=== PATIENT | male | born 1940 | race Caucasian/White ===

== ENCOUNTER → 2016-04-17 | Outpatient (CLI) | payer OTHER ==
--- NOTE | 2016-04-17 12:03 | DX ---
Thoracic Spine - 3 Views dated April 17, 2016 Indication: Follow up T3 and T4 compression fractures. Comparison: Thoracic spine series dated February 13, 2016. Findings: The mild to moderate T3 and T4 compression fractures are unchanged since February 2016. No new compression fracture. Imaged portion of the lungs are clear. Impression: T3 and T4 compression fractures unchanged since February 2016.
--- NOTE | 2016-04-17 14:41 | DX ---
Lumbar Spine, Two Views April 17, 2016 Indication: Follow up L1 fracture. Technique: Upright AP and lateral views. Comparison: Lumbar spine series dated February 13, 2016. Findings: Progressive height loss of L1 since three months prior. The anterior aspect of the vertebr al body now measures 15 mm craniocaudal (previously 25 mm). No new compression fracture. Moderate-sev ere multilevel degenerative disk and facet arthropathy and mild deformity of the upper sacrum are unc hanged. Impression: 1. Progressive height loss of moderate L1 compression fracture since three months prior. 2. No new compression fracture.
== END ==
LOC: FIMAGING 08:32
PROVIDERS: ATTEND Physician Assistant
DX: S32.010G Wedge compression fracture of first lumbar vertebra, subsequent encounter for fracture with delayed healing (principal); S22.03 Fracture of third thoracic vertebra; S22.04 Fracture of fourth thoracic vertebra

== ENCOUNTER → 2016-06-15 | Outpatient (CLI) | payer OTHER | LOC: FIMAGING 09:06 | PROVIDERS: ATTEND Physician Assistant | DX: S32.010D Wedge compression fracture of first lumbar vertebra, subsequent encounter for fracture with routine healing (principal); M51.36 Other intervertebral disc degeneration, lumbar region; M51.37 Other intervertebral disc degeneration, lumbosacral region; K59.00 Constipation, unspecified ==

== ENCOUNTER → 2016-08-21 | Outpatient (CLI) | payer OTHER | LOC: BHFA 08:30 | PROVIDERS: ATTEND Internal Medicine Cardiovascular Disease | DX: I48.92 Unspecified atrial flutter (principal) | CPT/HCPCS: 78452; 93017; A9500; J2785 ==

== ENCOUNTER → 2016-08-26 | Outpatient (CLI) | payer OTHER | LOC: BHFA 16:00 | PROVIDERS: ATTEND Internal Medicine Cardiovascular Disease | DX: I48.92 Unspecified atrial flutter (principal) ==

== ENCOUNTER 2016-09-18 08:11 | Day surgery (SDC) | payer OTHER ==
[2016-09-18] MEDS ORDERED: PROPOFOL 200 MG/20 ML VIAL IVP ONE (08:18)
[2016-09-18] MEDS ORDERED: MIDAZOLAM 2 MG/2 ML VIAL IVP ONE (08:18)
[2016-09-18] MEDS ORDERED: NS 500 ML IV ONE (08:18)
[2016-09-18] MEDS ORDERED: fentaNYL 100 MCG/2 ML INJ IVP ONE (08:18)
[2016-09-18] MEDS ORDERED: BENZOCAINE UNIT DOSE SPRAY HURRICAINE MM ONE (08:18)
--- NOTE | 2016-09-18 08:35 | CPEKG ---
Heart Rate: 70 RR Interval: 857 QRSD Interval: 118 QT Interval: 428 QTC Interval: 462 QRS [place]: -78 T Wave [place]: 36 EKG Severity - ABNORMAL ECG - EKG Impression: A-FLUTTER W/ PREDOM 4:1 AV BLOCK, A-RATE 272 EKG Impression: VENTRICULAR PREMATURE COMPLEX EKG Impression: INCOMPLETE RBBB AND LAFB EKG Impression: LOW VOLTAGE IN FRONTAL LEADS Electronically Signed By: Marcelino Mazariegos 18-Sep-2016 16:47:44
[2016-09-18] MEDS ORDERED: ATROPINE SULFATE 1 MG/10 ML SYR ONE (08:37)
[2016-09-18 09:03] LABS: INR 1.14 (0.83-1.16); PROTIME(PATIENT) 14.5 SEC (12.0-15.0)
[2016-09-18 09:04] LABS: APTT 31.2 SEC (23.0-38.0)
[2016-09-18 09:07] LABS: ANION GAP 8 mEq/L (8-16); CALCIUM 9.3 mg/dL (8.5-10.4); CARBON DIOXIDE 25 mEq/l (22-31); CHLORIDE 105 mEq/L (97-110); CREATININE 0.9 mg/dL (0.7-1.3); GLOMERULAR FILTRATION RATE > 60; GLUCOSE 94 mg/dL (70-100); POTASSIUM 4.1 mEq/L (3.5-5.2); SODIUM 138 mEq/L (134-144)
[2016-09-18] MEDS ORDERED: ETOMIDATE 40 MG/20 ML INJ ONE (10:26)
[2016-09-18] MEDS ORDERED: MIDAZOLAM 2 MG/2 ML VIAL ONE (10:26)
[2016-09-18] MEDS ORDERED: fentaNYL 100 MCG/2 ML INJ ONE (10:27)
--- NOTE | 2016-09-18 11:21 | CPEKG ---
Heart Rate: 61 RR Interval: 984 P-R Interval: 192 QRSD Interval: 108 QT Interval: 428 QTC Interval: 431 P [place]: 71 QRS [place]: 46 T Wave [place]: 17 EKG Severity - ABNORMAL ECG - EKG Impression: SINUS RHYTHM EKG Impression: INCOMPLETE RIGHT BUNDLE BRANCH BLOCK EKG Impression: LOW VOLTAGE IN FRONTAL LEADS Electronically Signed By: Marcelino Mazariegos 18-Sep-2016 16:47:36
--- NOTE | 2016-09-18 17:32 | CPIP ---
[f rep st] INVASIVE CARDIAC PROCEDURE DATE OF PROCEDURE: 09/18/2016 PROCEDURE PERFORMED: FAUSTO-guided cardioversion. INDICATIONS/APPROPRIATE USE CRITERIA: The patient has paroxysmal and persistent atrial flutter whic h is symptomatic and restricting his exercise tolerance. This appears to be new in onset. COMPLICATIONS: None. PROCEDURE IN DETAIL: After informed consent was obtained and n.p.o. status was confirmed, the patie nt underwent a transesophageal echo, which did not reveal evidence of clot within the left atrial ap pendage. There was also no evidence of spontaneous echo contrast within the left atrium to suggest a contraindication to cardioversion. The patient then received intravenous deep sedation with etomi date given at a dose of 0.08 mg/kg. After adequate sedation had been achieved, the patient underwen t elective direct current cardioversion with synchronized countershock of 150 joules which was bipha sic, with patches in anterior and posterior position, with subsequent return of the rhythm to normal sinus at a rate of 56-64. His pulse was checked, as well as his blood pressure, and he tolerated t he procedure well. FINAL IMPRESSION: Successful elective direct current cardioversion of atrial flutter which was ham sesophageal echocardiogram-guided. PLAN: The patient will be discharged on Eliquis 5 mg p.o. twice daily, which he started 2 days ago. /[id number]/MODL
--- NOTE | 2016-09-18 18:20 | ECHO ---
[id number] + + [address] : : [place] [address] : : [phone] + + Transesophageal Echocardiographic Report + + :Name: NAM BARCENAS Study Date: 09/18/2016 10:06 AM : : Hospital Admission Number: [id number] : :: 1940 Gender: Male : :Age: 76 yrs Race: WH : :Reason For Study: pre-cardioversion : :History: aflutter : + + LV The left ventricle is normal in size and function. RV The right ventricle is normal size. The right ventricular systolic function is mildly reduced. Atria The left atrium is mild to moderately dilated. No thrombus is detected in the left atrial appendage. No left atrial mass or thrombus visualized. Severe right atrial enlargement. Injection of contrast documented an interatrial shunt. The atrial septum is aneurysmal. Mitral Valve Mild bowing of the mitral leaflets however does not meet formal criteria for prolapse. There is mild mitral regurgitation. Aortic Valve The aortic valve is trileaflet. There is no aortic insufficiency. Tricuspid Valve The tricuspid valve is normal in structure and function. There is mild tricuspid regurgitation. Conclusion The left ventricle is normal in size and function. The right ventricular systolic function is mildly reduced. The left atrium is mild to moderately dilated. No thrombus is detected in the left atrial appendage. No left atrial mass or thrombus visualized. Severe right atrial enlargement. Injection of contrast documented an interatrial shunt. Mild bowing of the mitral leaflets however does not meet formal criteria for prolapse. There is mild mitral regurgitation. There is mild tricuspid regurgitation. The patient proceeded with sucessful elective DC cardioversion. Final Reading Physician: Holly Mixon signed on 09/18/2016 06:19 PM Ordering Physician: Shun Hanna Performed By: Epifanio Weiss MD
== END 2016-09-18 12:50 | disposition home or self-care (01) ==
LOC: FCATH 08:11
PROVIDERS: ATTEND Internal Medicine
PROC: 5A2204Z Restoration of Cardiac Rhythm, Single (ICD-10-PCS; principal; 2016-09-18)
PROC: B245ZZ4 Ultrasonography of Left Heart, Transesophageal (ICD-10-PCS; principal; 2016-09-18)
DX: I48.91 Unspecified atrial fibrillation (principal); I25.10 Atherosclerotic heart disease of native coronary artery without angina pectoris; E03.9 Hypothyroidism, unspecified
CPT/HCPCS: J0461; J2250; J3010

== ENCOUNTER → 2017-08-31 | Outpatient (CLI) | payer OTHER | LOC: FIMAGING 13:04 | PROVIDERS: ATTEND Nurse Practitioner | DX: M50.11 Cervical disc disorder with radiculopathy, high cervical region (principal); M41.82 Other forms of scoliosis, cervical region ==

== ENCOUNTER → 2017-09-06 | Outpatient (CLI) | payer OTHER | LOC: FIMAGING 16:10 | PROVIDERS: ATTEND Nurse Practitioner | DX: M84.88 Other disorders of continuity of bone, other site (principal); M53.83 Other specified dorsopathies, cervicothoracic region; M48.03 Spinal stenosis, cervicothoracic region ==

== ENCOUNTER → 2018-04-16 | Outpatient (CLI) | payer OTHER | LOC: FIMAGING 09:39 | PROVIDERS: ATTEND Orthopaedic Surgery | DX: Z01.818 Encounter for other preprocedural examination (principal); M17.12 Unilateral primary osteoarthritis, left knee ==

== ENCOUNTER 2018-05-17 05:14 | Inpatient (IN) | payer OTHER ==
[2018-05-17] MEDS ORDERED: LIDOCAINE 1% 2 ML INJ ONE (05:43)
[2018-05-17] MEDS ORDERED: GABAPENTIN 300 MG CAP PO ONE (05:59)
[2018-05-17] MEDS ORDERED: ACETAMINOPHEN 325 MG TAB PO ONE (05:59)
[2018-05-17] MEDS ORDERED: ONDANSETRON 4 MG/2 ML VIAL IVP ONE (05:59)
[2018-05-17] MEDS ORDERED: DEXAMETHASONE 4 MG/ML VIAL IVP ONE (05:59)
[2018-05-17] MEDS ORDERED: ceFAZolin 2 GM/DEXTROSE 100 ML IV ONE (05:59)
[2018-05-17] MEDS ORDERED: FAMOTIDINE 20 MG TAB PO ONE (05:59)
[2018-05-17] MEDS ORDERED: TRANEXAMIC ACID 3,000 MG in NS (SYRINGE) 50 ML IRR ONE (06:00)
[2018-05-17] MEDS ORDERED: ROPIVACAINE 0.2% 80 MG, EPINEPHrine 0.2 MG, KETOROLAC TROMETHAMINE 30 MG in SYRINGE 0 ML IU ONE (06:00)
[2018-05-17] MEDS ORDERED: TRANEXAMIC ACID 1,000 MG in NS 100 ML IV ONE (06:00)
[2018-05-17] MEDS ORDERED: POVIDONE-IODINE 20 ML in SODIUM CL IRRIG SOLUTION 500 ML IRR ONE (06:00)
[2018-05-17] MEDS ORDERED: LR 1,000 ML IV ONE (06:18)
[2018-05-17] MEDS ORDERED: LIDOCAINE 1% 2 ML INJ ID PRN (06:18)
[2018-05-17] MEDS ORDERED: TRANEXAMIC ACID 3,000 MG/50 ML BAG IRR ONE (06:30)
[2018-05-17] MEDS ORDERED: ceFAZolin 1 GM/5 ML SYR ONE (06:31)
[2018-05-17] MEDS ORDERED: PROMETHAZINE HCL 25 MG/ML INJ IVP PRN (07:00)
[2018-05-17] MEDS ORDERED: ONDANSETRON DISINTEGRATING 4 MG TAB PO PRN (07:00)
[2018-05-17] MEDS ORDERED: METOCLOPRAMIDE 10 MG/2 ML VIAL IVP PRN (07:00)
[2018-05-17] MEDS ORDERED: BISACODYL 10 MG SUPP PR PRN (07:00)
[2018-05-17] MEDS ORDERED: diphenhydrAMINE 25 MG CAP PO PRN (07:00)
[2018-05-17] MEDS ORDERED: LACTULOSE 20 GM/30 ML UDCUP PO PRN (07:00)
[2018-05-17] MEDS ORDERED: MAGNESIUM HYDROXIDE 30 ML UDCUP PO PRN (07:00)
[2018-05-17] MEDS ORDERED: NS 500 ML IV PRN (07:00)
[2018-05-17] MEDS ORDERED: TEMAZEPAM 15 MG CAP PO PRN (07:00)
[2018-05-17] MEDS ORDERED: POLYETHYLENE GLYCOL 3350 17 GM PKT PO PRN (07:00)
[2018-05-17] MEDS ORDERED: traMADol 50 MG TAB PO PRN (07:00)
[2018-05-17] MEDS ORDERED: PROMETHAZINE HCL 25 MG SUPPR PR PRN (07:00)
[2018-05-17] MEDS ORDERED: CYCLOBENZAPRINE 10 MG TAB PO PRN (07:00)
[2018-05-17] MEDS ORDERED: LR 1,000 ML IV SCH (07:00)
[2018-05-17] MEDS ORDERED: DIPHENOXYLATE/ATROPINE LOMOTIL 1 TAB PO PRN (07:00)
[2018-05-17] MEDS ORDERED: ONDANSETRON 4 MG/2 ML VIAL IVP PRN ×2 (07:00→10:39)
[2018-05-17] MEDS ORDERED: oxyCODONE IR 5 MG TAB PO PRN ×2 (07:00→10:39)
--- NOTE | 2018-05-17 07:00 | PDHPUP ---
History & Physical Update H&P update statement: This history and physical update is based on an assessment of the patient which was completed after admission or registration (within 24 hours), but prior to the surgery/procedure. H&P update: H&P reviewed & patient examined
[2018-05-17] MEDS ORDERED: BUPIVACAINE/DEXTROSE 7.5MG/ML 2 ML SPINAL AMP SP ONE (07:08)
[2018-05-17] MEDS ORDERED: PROPOFOL 200 MG/20 ML VIAL ONE (07:27)
[2018-05-17] MEDS ORDERED: ONDANSETRON 4 MG/2 ML VIAL ONE (07:38)
[2018-05-17] MEDS ORDERED: ROCURONIUM 50 MG/5 ML VIAL ONE (07:38)
[2018-05-17] MEDS ORDERED: DEXAMETHASONE 4 MG/ML VIAL ONE (07:38)
[2018-05-17] MEDS ORDERED: RANITIDINE 50 MG/2 ML VIAL ONE (07:39)
[2018-05-17] MEDS ORDERED: HYDROmorphONE/DILAUDID 2 MG/ML INJ ONE (07:40)
[2018-05-17] MEDS ORDERED: METOPROLOL TARTRATE 5 MG/5 ML INJ ONE ×2 (07:48→09:04)
--- NOTE | 2018-05-17 08:07 | PDMN ---
Medical Necessity Medical necessity: [facility] [place] OP: L TKA- auth# [id number] APPROVED FOR 3 DAYS
[2018-05-17] MEDS ORDERED: ROPIVACAINE HCL 150 MG/30 ML INJ ONE (08:45)
[2018-05-17] MEDS ORDERED: PHENYLEPHRINE HCL 100 MCG/ML SYR ONE (09:34)
--- NOTE | 2018-05-17 10:05 | POSTOPPROG ---
Post Op Note Date of Operation: 05/17/18 Surgeon: Eusebio Shea Advertising Associate: Amy Anesthesiologist: Dr. Claus Davis Anesthesia: GET(General Endotracheal) Post-op Diagnosis: Left knee degenerative arthritis. Procedure: Left total knee arthroplasty, Braden assisted. Inf/Abcess present in the surg proc area at time of surgery?: No EBL: 50-100 (Adductor canal block in PACU with indwelling catheter.)
[2018-05-17] MEDS ORDERED: fentaNYL 100 MCG/2 ML INJ ONE (10:19)
--- NOTE | 2018-05-17 10:25 | GOP ---
[f rep st] OPERATIVE REPORT DATE OF OPERATION: 05/17/2018 SURGEON: Eusebio Shea MD JOINTER OPERATOR: Agustin Reyes CFA ANESTHESIA: General anesthesia. ANESTHESIOLOGIST: Dr. Claus Davis PREOPERATIVE DIAGNOSIS: Left knee severe degenerative arthritis. POSTOPERATIVE DIAGNOSIS: Left knee severe degenerative arthritis. PROCEDURE PERFORMED: Left total knee arthroplasty, Braden assisted, press fit. FINDINGS: DESCRIPTION OF PROCEDURE: The patient was given 2 g of IV Ancef preoperatively within 60 minutes of surgery. He also received 2000 mg of IV tranexamic acid. He was on the operating room table and Dr. Davis attempted spinal anesthesia. That was unsuccessful. Dr. Davis then administered general anesthesia. A Mcnally catheter was not used. He wore a NADYA stocking and SCD on the nonoperative leg. His left lower extremity was prepped with ChloraPrep from the upper thigh tourniquet to the tips of the toes. It was draped free using sterile sheets, stockinette, and Ioban plastic adhesive drape. The lower leg was wrapped with compressive Coban. The World Health Organization time-out was performed to verify the correct patient identity and the correct surgical side and site. The [place] time-out was also performed. The Safe Bulkersayo leg holding device was sterilely attached to the operating room table and used throughout the procedure to help position the knee. Two 3 mm partially threaded pins were inserted in a bicortical fashion in the anteromedial cortex of the tibia about 4 inches distal to the tibial tubercle. At this point, the leg was exsanguinated with a 6-inch compressive wrap, and the tourniquet was inflated to 250 mmHg. A straight midline incision made centered on the patella. Subcutaneous tissues were sharply divided, and hemostasis was obtained using electrocautery. A medial subcutaneous flap was developed, and the capsule and synovium were opened in a medial parapatellar fashion. His medial capsule and periosteum were lightly elevated off the rim of the medial tibial plateau. Two 3 mm partially threaded pins were inserted in the anteromedial cortex of the distal femur in the supracondylar region through the incision. The femoral checkpoint was inserted anterior and just between the 2 pins. The tibial check point was inserted in the anteromedial cortex of the tibia about an inch distal to the joint line. The computer arrays were attached and I confirmed that both the femur and tibial rays were visualized by the computer. The bony anatomy of the knee was registered on the computer starting with the center of rotation of the femoral head, followed by the medial and lateral malleoli. The femoral and tibial surface anatomy were registered. Osteophytes were removed from the edges of both femoral condyles. I performed dynamic joint balancing. He was tight medially. The preoperative plan called for a 5 femur and a 6 tibia. In order to achieve proper gap balancing in extension and flexion, I shifted the tibia into 2 degrees of varus and the femur in 5 degrees of external rotation. I removed the femoral component 1 mm distally and the tibial component 1 mm proximally. This gave me good joint balancing with gaps of 18 9 mm medially and laterally in both flexion and extension. The robotic saw was position and registered. I made the appropriate cuts on the distal femur. The robot was then used to make the proximal tibial cut. I used the appropriate jig to create the notch in the femur with the power sagittal saw and osteotome in order to accommodate the posterior stabilized femoral component. The size 5 trial femoral component was applied. I was careful that it was centered on the distal femur. The posterior compartment was cleared of meniscal remnants. Osteophytes were removed from the back of the femoral condyles. 40 mL of the joint anesthetic cocktail were injected into the posterior capsule, the quadriceps muscle and tendon areas, and the subcutaneous tissues along the skin edges. The tibia was sized for a size 6 component. I used the central fin punch. I then drilled the 2 medial fixation holes on the tibial surface for the press- fit component. The medial tibial surface was very sclerotic. He had excellent quality bone and I was using press-fit components. With the trial components in place, I selected a 9 mm posterior stabilized tibial insert. The knee came to full extension and flexed to 135 degrees. His collateral ligaments were stable and balanced in full extension and 90 degrees of flexion. The computer gaps were 18 and 19 mm medially and laterally, and 90 degrees of flexion and 10 degrees lacking full extension. The press-fit tibial component was inserted and tapped securely into place. It was a good tight fit. The femoral component was tapped into place and again was a tight, excellent fit. The 9 mm Triathlon posterior stabilized polyethylene insert was inserted and locked into place. At this point, the tourniquet was deflated and the total tourniquet time was 1 hour and 17 minutes. At this point, the patella was prepared. The original thickness of the patella was measured. Peripheral osteophytes were removed. I cut a flat surface on the back of the patella. He was sized for a 38 mm asymmetric patella, which is 11 mm in thickness. I removed enough bone from the patella, such that the remaining bone, plus the thickness of the patellar component recreated the original thickness of the patella. The composite thickness was 24 mm. The 38 mm asymmetric Triathlon press-fit patellar component was inserted. The tightening device was applied and I compressed the patellar component into place. It was very tight fixation. The knee came to full extension and flexed to 130 degrees. The wound was thoroughly irrigated with a dilute Betadine solution. 50 cc of tranexamic acid were instilled into the joint. The vastus medialis portion of the extensor mechanism was repaired with several interrupted [id number] #2 FiberWire sutures. The capsule and synovium were closed first with multiple interrupted [id number] 0 PDS sutures, followed by a running #2 barbed Ethicon Stratafix PDO suture. The subcutaneous tissues were closed with a running 0 barbed Ethicon Stratafix Monoderm suture. The skin was closed with a running 3-0 barbed Ethicon Stratafix Monoderm subcuticular suture. The skin was sealed with half-inch Steri-Strips. The pin puncture wounds on the tibial were closed with half-inch Steri-Strips. The wound was covered with a large sterile Mepilex waterproof dressing. His knee was wrapped with a 6-inch compressive wrap. A long-leg NADYA stocking and SCD were applied, followed by the cooling device. The sacral Mediplex dressing was also applied. I used a size 5 [place] Triathlon press-fit posterior stabilized femoral component, size 6 Triathlon Tritanium press-fit tibial component, a 38 mm x 11 mm asymmetric patellar component press-fit, and a 9 mm posterior stabilized tibial insert. The sponge and needle count were correct on 2 occasions. He was awakened from anesthesia, transferred to his gurney, and taken to PACU in satisfactory condition. There were no recognized intraoperative complications. For additional postoperative pain control, Dr. Davis performed an adductor canal block with an indwelling catheter in the PACU. Agustin Reyes acted as a surgical pathologist. His assistance was a medical necessity for safe completion of the procedure. /[id number]/MODL MTDD
[2018-05-17] MEDS ORDERED: NALOXONE HCL 0.4 MG/ML INJ IVP PRN (10:39)
[2018-05-17] MEDS ORDERED: ALBUTEROL 3 ML DEYVIAL IH PRN (10:39)
[2018-05-17] MEDS ORDERED: METOPROLOL TARTRATE 5 MG/5 ML INJ IVP PRN (10:39)
[2018-05-17] MEDS ORDERED: fentaNYL 100 MCG/2 ML INJ IVP PRN (10:39)
[2018-05-17] MEDS ORDERED: ACETAMINOPHEN 500 MG TAB PO PRN (10:39)
--- NOTE | 2018-05-17 10:41 | POSTANESTH ---
Post Anesthetic Evaluation Cardiovascular Status: Similar to Pre-Op Cond Respiratory Status: Normal, Stable Level of Consciousness/Mental Status: Can Participate in Eval, Alert and Oriented Pain Control: Adequate, Prn Tx Ordered Nausea/Vomiting Control: Adequate, Prn Tx Ordered Complications Possibly Related to Anesthesia: None Noted
--- NOTE | 2018-05-17 10:42 | PDANEPAE ---
ANE History of Present Illness Left Knee ANE Past Medical History - Cardiovascular History Hx Hypertension: No Hx Arrhythmias: Yes Hx Chest Pain: No Hx Coronary Artery / Peripheral Vascular Disease: Yes Hx CHF / Valvular Disease: No Hx Palpitations: No Cardiovascular History Comment: Hx of A flutter FAUSTO cardioversion. 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 CHER-AE HEIGHTS. missing teeth. cataracts - Chronic Pain History Chronic Pain: No - Surgical History Prior Surgeries: L GREGORY 2005. multiple fx after climbing accident,fell 20ft torso shell. carpal tunnel ANE Review of Systems Review of Systems: - Exercise capacity METS (RN): 6 METS ANE Patient History - Allergies Allergies/Adverse Reactions: No Known Allergies Allergy (Verified 04/26/18 11:41) - Home Medications Home Medications: Herbals/Supplements -Info Only 1 ea PO DAILY 11/19/17 [Last Taken 05/16/18] Cyanocobalamin [Vitamin B12 (*)] 5,000 mcg PO DAILY 04/19/18 [Last Taken ] Levothyroxine [Synthroid 175 mcg (*)] 175 mcg PO DAILY06 04/19/18 [Last Taken 03:05] - NPO status NPO Since - Liquids (Date): 05/17/18 NPO Since - Liquids (Time): 03:05 NPO Since - Solids (Date): 05/16/18 NPO Since - Solids (Time): 20:30 - Smoking Hx Smoking Status: Former smoker - Family Anes Hx Family Hx Anesthesia Complications: none ANE Labs/Vital Signs - Vital Signs Blood Pressure: 138/89 Heart Rate: 70 Respiratory Rate: 10 O2 Sat (%): 97 Height: 180.34 cm Weight: 80.739 kg ANE Physical Exam - Airway Neck exam: FROM Mallampati Score: Class 2 Mouth exam: normal dental/mouth exam - Pulmonary Pulmonary: clear to auscultation - Cardiovascular Cardiovascular: regular rate and rhythym - ASA Status ASA Status: II (A-flutter 4:1 on 12-lead) ANE Anesthesia Plan Anesthesia Plan: general endotracheal anesthesia Regional Anesthesia: adductor canal FNB
[2018-05-17] MEDS: ACETAMINOPHEN 325 MG TAB PO SCH ×3 (12:17→23:47)
[2018-05-17] MEDS: KETOROLAC 15 MG/1 ML SDV IVP SCH ×3 (12:18→23:46)
[2018-05-17] MEDS: SENNOSIDES/DOCUSATE SODIUM TAB PO SCH ×2 (12:18→21:17)
[2018-05-17] MEDS: ceFAZolin 2 GM/DEXTROSE 100 ML IV SCH ×2 (14:46→21:16)
--- NOTE | 2018-05-17 15:54 | CPEKG ---
Test Reason : pre-op Blood Pressure : / mmHG Vent. Rate : 069 BPM Atrial Rate : 278 BPM P-R Int : 285 ms QRS Dur : 109 ms QT Int : 443 ms P-R-T Axes : 097 080 046 degrees QTc Int : 475 ms Atrial flutter with predominant 4:1 AV block Confirmed by Kevin Suarez ([id number]) on 05/17/2018 3:54:44 PM Referred By: Eusebio Shea Confirmed By:Kevin Suarez
[2018-05-17] MEDS: FAMOTIDINE 20 MG TAB PO SCH (21:18)
[2018-05-17] MEDS: ASPIRIN 325 MG TAB PO SCH (21:20)
[2018-05-18] MEDS: KETOROLAC 15 MG/1 ML SDV IVP SCH (05:53)
[2018-05-18] MEDS: ACETAMINOPHEN 325 MG TAB PO SCH ×2 (05:54→12:22)
[2018-05-18] MEDS ORDERED: LEVOTHYROXINE 175 MCG TAB PO SCH (06:00)
[2018-05-18] MEDS: SENNOSIDES/DOCUSATE SODIUM TAB PO SCH (07:34)
[2018-05-18] MEDS: ASPIRIN 325 MG TAB PO SCH (07:34)
[2018-05-18] MEDS: FAMOTIDINE 20 MG TAB PO SCH (07:36)
[2018-05-18] MEDS ORDERED: FERROUS SULFATE 325 MG TAB PO SCH (08:00)
[2018-05-18] MEDS ORDERED: LIPID EMULSION 20% 100 ML IV PRN (09:31)
--- NOTE | 2018-05-18 09:34 | PDPAINCON ---
Pain Management Consultation Patient referred by : Shabbir - Subjective Pain at rest (/10): 0 Pain with activity (/10): 0 Pain is: no pain at all Activity: able to ambulate - Objective Site: femoral (adductor canal PNB catheter) Continuous infusion: ropivicaine Vital signs: stable - Assessment/Plan Assessment/Plan: pain well-controlled, continue current mgmt Additional comments: Redosed AC catheter with 2 mL aliquots for a total of 20 mL of 0.5% ropivacaine. Negative aspiration/perioral paresthesia/tinnitus. Catheter then removed with tip intact.
--- NOTE | 2018-05-18 09:50 | SOAPPROG ---
SOAP Progress Note Assessment/Plan: Assessment: Afebrile. Awake and alert. Very little pain. He has been up and walking in the bo. Postop films look excellent. Plan: Continue physical therapy for stairs. Standing alignment film today. Discharge later today. He will go to outpatient physical therapy at my office in 1 week. 05/18/18 09:50 Objective: Vital Signs Temp Pulse Resp BP Pulse Ox 36.7 C 85 15 115/78 96 05/18/18 07:27 05/18/18 07:27 05/18/18 07:27 05/18/18 07:27 05/18/18 07:27 Laboratory Results 05/18/18 04:18 05/17/18 05/18/18 05/19/18 05:59 05:59 05:59 Intake Total 3315 200 Output Total 1335 675 Balance 1979 -869 ICD10 Worksheet Patient Problems: Problems Problem Status Onset Osteoarthritis of left knee Acute Activity, mountain climbing, rock climbing and wall climbing Acute Back pain Acute Fall Acute Fracture of thoracic spine at T3-T4 level Acute Lumbar burst fracture Acute Ribs, multiple fractures Acute Sacral fracture, closed Acute
--- NOTE | 2018-05-18 10:04 | ASMTLACE ---
LACE Length of stay for Answers: 2 days current admission Acuity / Level of Answers: Yes Care: Did the patient have an inpatient admission? Comorbidities - select Answers: Any tumor (including all that apply lymphoma or leukemia) Coronary Artery Disease Other Notes: Hypothyroid # of Emergency department Answers: 1-2 visits in the last 6 months Score: 11 Date Signed: 05/18/2018 10:03 AM Electronically Signed By:MADDY Rodriguez
--- NOTE | 2018-05-18 10:10 | ASMTCMCOM ---
CM Note CM Note Notes: Pt had planned OA of knee. PT and MD rec outpatient. No CM d/c needs identified. Date Signed: 05/18/2018 10:10 AM Electronically Signed By:MADDY Rodriguez
--- NOTE | 2018-05-18 10:14 | GDS ---
[f rep st] DISCHARGE SUMMARY ADMISSION DIAGNOSIS: Left knee severe degenerative arthritis. DISCHARGE DIAGNOSIS: Left knee severe degenerative arthritis. OPERATION PERFORMED: 05/17/2018, left total knee arthroplasty, Braden robot assisted. POSTOPERATIVE COMPLICATIONS: None. CONDITION ON DISCHARGE: Improved. DESCRIPTION OF HOSPITAL COURSE: The patient was admitted to the hospital morning of surgery. His ad mission CBC was normal. The same day, under general anesthesia, he underwent a left total knee arthr oplasty, Braden robot assisted. Postoperatively he was treated with multimodal DVT prophylaxis, includ ing aspirin. On the first postoperative day, his hemoglobin and hematocrit were 12.3 and 35.9. He w as able to void spontaneously. He was seen by Physical Therapy and made good progress with ambulatio n, knee range of motion and stairs. By the time of discharge, he was afebrile and was independent wa lking with a walker. DISPOSITION: The patient discharged to his home. He will go to outpatient physical therapy in [facility] next week. Continue aspirin 325 mg p.o. daily for 21 days. Use NADYA stockings for 1 week. He h as prescriptions for oxycodone, tramadol and Celebrex for pain control. I will see him back in the [facility] on June 02, 2018. If there any problems, he is to call me at the office. /[id number]/MODL
[2018-05-18 10:20] VITALS: BP 131/71
== END 2018-05-18 13:32 | disposition home or self-care (01) | DRG 470 ==
LOC: F3N 05:14
PROVIDERS: ADMIT Orthopaedic Surgery; ATTEND Orthopaedic Surgery
DX: M17.12 Unilateral primary osteoarthritis, left knee (principal); G47.30 Sleep apnea, unspecified
CPT/HCPCS: 97110-GP; 97116-GP; 97161-GP; 97165-GO; J0171; J0690; J1100; J1170; J1885; J2370; J2405; J2704; J2780; J2795; J3010

== ENCOUNTER 2018-08-18 10:15 | Day surgery (SDC) | payer OTHER ==
[2018-08-18] MEDS ORDERED: fentaNYL 100 MCG/2 ML INJ IVP ONE (10:17)
[2018-08-18] MEDS ORDERED: BENZOCAINE UNIT DOSE SPRAY HURRICAINE MM ONE (10:17)
[2018-08-18] MEDS ORDERED: MIDAZOLAM 2 MG/2 ML VIAL IVP ONE (10:17)
[2018-08-18] MEDS ORDERED: NS 500 ML IV ONE (10:17)
[2018-08-18] MEDS ORDERED: ATROPINE SULFATE 1 MG/10 ML SYR IVP ONE (10:17)
[2018-08-18 10:59] LABS: INR 1.08 (0.83-1.16); PROTIME(PATIENT) 13.6 SEC (12.0-15.0)
--- NOTE | 2018-08-18 12:11 | PDGENHP ---
History & Physical Chief Complaint: persistent atrial flutter History of Present Illness: persistent atrial flutter Relevant Physical Exam: A+Ox4, irr irr/mildly tachy, no MRG, CTAB, no focal deficits Cardiorespiratory Assessment: persistent atrial flutter -> FAUSTO/cardioversion
[2018-08-18] MEDS ORDERED: LIDOCAINE 1% 5 ML SDV ONE (12:30)
[2018-08-18] MEDS ORDERED: PROPOFOL 200 MG/20 ML VIAL ONE (12:30)
--- NOTE | 2018-08-18 12:36 | POSTANESTH ---
Post Anesthetic Evaluation Cardiovascular Status: Normal, Stable Respiratory Status: Normal, Stable Level of Consciousness/Mental Status: Can Participate in Eval, Alert and Oriented Pain Control: Adequate, Prn Tx Ordered Nausea/Vomiting Control: Adequate, Prn Tx Ordered Complications Possibly Related to Anesthesia: None Noted
--- NOTE | 2018-08-18 12:38 | PDANEPAE ---
ANE History of Present Illness 78 yo male with A flutter for FAUSTO/CV. ANE Past Medical History - Cardiovascular History Hx Hypertension: No Hx Arrhythmias: Yes Hx Chest Pain: No Hx Coronary Artery / Peripheral Vascular Disease: Yes Hx CHF / Valvular Disease: No Hx Palpitations: No Cardiovascular History Comment: Hx of A flutter FAUSTO cardioversion. now SR no further issues per pt - Pulmonary History Hx COPD: No Hx Asthma/Reactive Airway Disease: No Hx Recent Upper Respiratory Infection: No Hx Oxygen in Use at Home: No Hx Sleep Apnea: Yes Pulmonary History Comment: Uses oral dental device for his CHUCK - Neurologic History Hx Cerebrovascular Accident: No Hx Seizures: No Hx Dementia: No Neurologic History Comment: visual migraines/tunnel vision - Endocrine History Hx Diabetes: No Hypothyroid: No Hyperthyroid: No Obesity: no - Renal History Hx Renal Disorders: No - Liver History Hx Hepatic Disorders: No - Neurological & Psychiatric Hx Hx Neurological and Psychiatric Disorders: Yes Neurological / Psychiatric History Comment: visual migraine - Cancer History Hx Cancer: Yes 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 [place] missing teeth. cataracts - Chronic Pain History Chronic Pain: No - Surgical History Prior Surgeries: L GREGORY 2005. multiple fx after climbing accident,fell 20ft torso shell. carpal tunnel ANE Review of Systems Review of Systems: ANE Patient History - Allergies Allergies/Adverse Reactions: No Known Allergies Allergy (Verified 04/26/18 11:41) - Home Medications Home Medications: Herbals/Supplements -Info Only 1 ea PO DAILY 11/19/17 [Last Taken 05/16/18] Cyanocobalamin [Vitamin B12 (*)] 5,000 mcg PO DAILY 04/19/18 [Last Taken ] Levothyroxine [Synthroid 175 mcg (*)] 175 mcg PO DAILY06 04/19/18 [Last Taken 06:45] Eliquis 08/18/18 [Last Taken 08/18/18 09:00] - NPO status NPO Status: no food or drink >8 hours - Anes Hx Anes Hx: no prior problems - Smoking Hx Smoking Status: Former smoker - Family Anes Hx Family Hx Anesthesia Complications: none ANE Labs/Vital Signs - Labs Result Diagrams: 08/18/18 10:40 - Vital Signs Vital Signs: reviewed preoperatively; see RN documention for details Height: 180.34 cm Weight: 81.647 kg ANE Physical Exam - Airway Neck exam: FROM Mallampati Score: Class 1 Mouth exam: normal dental/mouth exam - Pulmonary Pulmonary: clear to auscultation - Cardiovascular Cardiovascular: irregularly irregular - ASA Status ASA Status: II ANE Anesthesia Plan Anesthesia Plan: GA with mask Total IV Anesthesia: Yes
--- NOTE | 2018-08-18 13:10 | EPPROC ---
Electrophysiology Procedure Note: Date: 08/18/2018 [place]: Nicholas Peacock MD Procedures performed: Transesophageal echocardiography -[id number] Direct current cardioversion-[id number] Indications: 78-year-old male with typical atrial flutter Techniques: Following informed consent, the patient was brought to the procedure area in a fasting nonsedated state, in atrial flutter rhythm. IV sedation was provided by the anesthesiology service. Defibrillation pads were applied in an anteroposterior orientation to the chest. Transesophageal echocardiography was performed, demonstrating the absence of left atrial appendage thrombus, and normal left atrial appendage exit velocities (see formal report for full details). After ensuring adequate sedation, a single R- wave synchronized 200 joule biphasic transcutaneous shock was delivered, resulting in termination of atrial flutter and resumption of sinus rhythm with occasional PACs. There was no significant sinus pause following conversion. The patient tolerated the procedure well. EBL: None Complications: None Assessment: Successful cardioversion of atrial flutter to sinus rhythm Plan: Discharge to home Eliquis 5 mg twice daily for at least 1 month, THE PATIENT WAS INSTRUCTED NOT TO HOLD ANY DOSES OF THE MEDICATION WITHIN THE 1ST MONTH following cardioversion Patient Problems: Problems Problem Status Onset Activity, mountain climbing, rock climbing and wall climbing Acute Back pain Acute Fall Acute Fracture of thoracic spine at T3-T4 level Acute Lumbar burst fracture Acute Osteoarthritis of left knee Acute Ribs, multiple fractures Acute Sacral fracture, closed Acute
--- NOTE | 2018-08-22 14:01 | CPEKG ---
Test Reason : OPEN Blood Pressure : / mmHG Vent. 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
--- NOTE | 2018-08-22 15:26 | CPEKG ---
Test Reason : OPEN Blood Pressure : / mmHG Vent. Rate : 060 BPM Atrial Rate : 122 BPM P-R Int : 205 ms QRS Dur : 103 ms QT Int : 450 ms P-R-T Axes : 043 103 039 degrees QTc Int : 450 ms Sinus rhythm Supraventricular bigeminy Low voltage, precordial leads Right ventricular hypertrophy Confirmed by Kevin Suarez ([id number]) on 08/22/2018 3:25:59 PM Referred By: Pancho Peacock Confirmed By:Kevin Suarez
== END 2018-08-18 14:11 | disposition home or self-care (01) ==
LOC: FCATH 10:15
PROVIDERS: ATTEND Internal Medicine Cardiovascular Disease
DX: I48.3 Typical atrial flutter (principal); I25.10 Atherosclerotic heart disease of native coronary artery without angina pectoris; E03.9 Hypothyroidism, unspecified
CPT/HCPCS: J2704

== ENCOUNTER 2018-09-15 08:37 | Observation (INO) | payer OTHER | END 2018-09-16 10:02 | disposition home or self-care (01) | LOC: FCATH 08:37 → F2W 12:00 ==